=== PATIENT | male | born 1950 | race Caucasian/White ===

== ENCOUNTER → 2017-12-26 | Outpatient (CLI) | payer MEDICARE | END | disposition home or self-care (01) | LOC: LAB 10:18 | PROVIDERS: ATTEND Urology | DX: N20.0 Calculus of kidney (principal); N40.0 Benign prostatic hyperplasia without lower urinary tract symptoms | CPT/HCPCS: 84153 ==

== ENCOUNTER → 2018-02-05 | Outpatient (CLI) | payer MEDICARE | END | disposition home or self-care (01) | LOC: XY 10:18 | PROVIDERS: ATTEND Urology | DX: C61 Malignant neoplasm of prostate (principal); R07.81 Pleurodynia; Z96.653 Presence of artificial knee joint, bilateral | CPT/HCPCS: 78306; A9503 ==

== ENCOUNTER → 2018-08-11 | Outpatient (CLI) | payer MEDICARE | END | disposition home or self-care (01) | LOC: LAB 12:24 | PROVIDERS: ATTEND Urology | DX: C61 Malignant neoplasm of prostate (principal) | CPT/HCPCS: 84153 ==

== ENCOUNTER → 2018-11-11 | Outpatient (CLI) | payer MEDICARE | END | disposition home or self-care (01) | LOC: LAB 09:17 | PROVIDERS: ATTEND Urology | DX: C61 Malignant neoplasm of prostate (principal) | CPT/HCPCS: 84153 ==

== ENCOUNTER 2018-11-27 13:53 | Emergency (ER) | payer MEDICARE ==
[~2018-11-27] VITALS: Ht 177.8 cm; Wt 99.8 kg
[2018-11-27 14:31] VITALS: BP 139/74
[2018-11-27] MEDS ORDERED: HYDROcodone-ACET 5/325MG TAB PO ONE (15:00)
== END 2018-11-27 15:42 | disposition home or self-care (01) ==
LOC: ER 13:59
DX: S52.124A Nondisplaced fracture of head of right radius, initial encounter for closed fracture (principal); M06.9 Rheumatoid arthritis, unspecified; W01.198A Fall on same level from slipping, tripping and stumbling with subsequent striking against other object, initial encounter; Y93.89 Activity, other specified; Y99.8 Other external cause status; Y92.22 Religious institution as the place of occurrence of the external cause
CPT/HCPCS: 29105; 73200

== ENCOUNTER → 2019-01-15 | Outpatient (CLI) | payer MEDICARE | END | disposition home or self-care (01) | LOC: LAB 12:47 | PROVIDERS: ATTEND Urology | DX: C61 Malignant neoplasm of prostate (principal) | CPT/HCPCS: 36415; 84153; 84403 ==

== ENCOUNTER → 2019-11-06 | Outpatient (CLI) | payer MEDICARE | END | disposition home or self-care (01) | LOC: LAB 12:42 | PROVIDERS: ATTEND Internal Medicine Rheumatology | DX: R94.5 Abnormal results of liver function studies (principal) | CPT/HCPCS: 36415; 87340 ==

== ENCOUNTER → 2019-11-09 | Outpatient (CLI) | payer MEDICARE | END | disposition home or self-care (01) | LOC: LAB 12:41 | PROVIDERS: ATTEND Urology | DX: C61 Malignant neoplasm of prostate (principal) | CPT/HCPCS: 84153 ==

== ENCOUNTER → 2020-05-02 | Outpatient (CLI) | payer MEDICARE | END | disposition home or self-care (01) | LOC: LAB 16:00 | PROVIDERS: ATTEND Urology | DX: N39.0 Urinary tract infection, site not specified (principal) | CPT/HCPCS: 87086 ==